=== PATIENT | male | born 1955 | race Caucasian/White ===

== ENCOUNTER 2025-01-06 10:38 | Outpatient (CLI) | payer MEDICARE, OTHER, SELFPAY ==
--- NOTE | ~2025-01-06 | US_ITS ---
TESTICULAR ULTRASOUND (Doppler ultrasound interrogation techniques used as needed for this exam.) Ordering provider: Loc Brush MD History: . N50.811 - Right testicular pain . Comparison: None. FINDINGS: TESTICLES: Normal in size. The right measures 4.9x 2x 3.2 cm and the left measures 4.8x 2.3x 2.7 cm. Normal echogenicity bilaterally without mass lesion. Normal Doppler flow bilaterally. Cystic area se en in the right testicle measuring 0.2 x 0.2 x 0.2 cm. EPIDIDYMIDES: Normal in size. The right measures 0.8 cm and the left 1 cm. Normal echogenicity bilate rally. Both demonstrate normal Doppler flow. Multiple cystic areas in the right epididymis with the l argest measures 1.3 x 1 x 1.1 cm HYDROCELE: Bilateral small VARICOCELE: Right measures 2.4 mm. OTHER ABNORMALITY: None seen. IMPRESSION: Right testicular cyst. Multiple right epididymal cyst. Bilateral hydrocele. Right varicocele. Otherwi se, normal testicular ultrasound. Reviewed, dictated and finalized at location A. IMPRESSION: Right testicular cyst. Multiple right epididymal cyst. Bilateral hydrocele. Rig ht varicocele. Otherwise, normal testicular ultrasound.
== END 2025-01-06 10:39 | disposition home or self-care (01) ==
PROVIDERS: PCP Internal Medicine; Visit Provider Internal Medicine
DX: N44.2 Benign cyst of testis (principal); N50.3 Cyst of epididymis; N43.3 Hydrocele, unspecified; I86.1 Scrotal varices
CPT/HCPCS: 76870; 93976

== ENCOUNTER 2025-01-08 11:52 | Outpatient (CLI) | payer MEDICARE, OTHER, SELFPAY ==
--- NOTE | ~2025-01-08 | XR_ITS ---
Lumbosacral Spine: AP and lateral views Clinical History: Pain Findings: The normal lordotic curve is maintained. The vertebral bodies and posterior elements are i ntact. The intervertebral disc spaces are preserved. There is moderate facet arthropathy and lumbar spine. The sacroiliac joints are normally outlined. Impression: Moderate facet arthropathy. Reviewed, dictated and finalized at location . Impression: Moderate facet arthropathy.
--- NOTE | ~2025-01-08 | XR_ITS ---
AP and oblique views of the SI joints CLINICAL HISTORY: Back pain FINDINGS: SI joints are unremarkable. Visualized hip joints are unremarkable. No degenerative, erosiv e, or sclerotic change. No fracture or dislocation. Soft tissues are unremarkable. IMPRESSION: Unremarkable exam. Reviewed, dictated and finalized at location . IMPRESSION: Unremarkable exam.
--- OUTSIDE RECORDS SUMMARY | 2025-01-08 11:59 | XMS_ITS | Continuity of Care Document ---
Author Name [facility] Organization [facility] Care Team Providers Care Supervisor Matrix Name Role Phone [facility] Unavailable Unavailable Medications Combined list of outpatient medications from Department of Defense and Veterans Affairs facilities.Medications provided include 1) outpatient medications from the last 15 months, and 2) patient-reported medications. Medication Details Route Status Patient Instructions Prescription Expires Prescription Number Last Dispense Date Ordering Provider Order Date Order Qty Source ACETAMINOPH EN-CODEINE (ACETAMINOP HEN WITH CODEINE), 300MG-30MG, TABLET, ORAL, [facility], 1000 ea. BOTTLE Active [id number] 2023 100 Pharmac y Data Transac tion Service Facilit y METFORMIN HCL ER (metformin HCl), 500 MG, TAB ER 24H, ORAL, AVKARE, 1000 ea. BOTTLE Active [id number] 4 2023 90 Pharmac y Data Transac tion Service Facilit y Immunizations Combined list of available immunizations from the Department of Defense and Veterans Affairs facilities. Immunization Series Date Given Administered By Site Reaction Lot Number CVX Code Drug Book Author Status Comments Source influenza, recombinant, quadrivalent, injectable, preservative free 2018 ALUL, () Not Given influenza , recombina nt, quadrival ent,injec table, preservat damien free DoD zoster recombinant 2018 ALBINO MICHEL () Not Given zoster recombina nt [facility] Social History Combined list of available smoking, tobacco, and other social history from Department of Defense and Veterans Affairs facilities. Social History Type Response Date Comment Sourc e This section is an empty social history section. [facility]
--- OUTSIDE RECORDS SUMMARY | 2025-01-08 11:59 | XMS_ITS | Continuity of Care Document ---
Author Organization [facility] Address [address] [place] [id number] Care Team Providers Care Manager Of Creative Services Name Role Phone PravinminnaDeedee DO Primary Care Provider Encounters Date Type Department Care Team Description 03/24/2020 Travel 03/24/2020 8:45 AM CDT Office Visit [facility] Physical [address] [address] Nate Thorne MD Koehler, Andrea H, PT Joint Pain/Shoulder region 03/18/2020 Travel 03/18/2020 8:00 AM CDT Office Visit [facility] Physical [address] [address] Nate Thorne MD Koehler, Andrea H, PT Joint Pain/Shoulder region 03/10/2020 Travel 03/10/2020 8:45 AM CDT Office Visit [facility] Physical [address] [address] Nate Thorne MD Koehler, Andrea H, PT Shoulder Pain 03/03/2020 Travel 03/03/2020 8:45 AM CDT Office Visit [facility] Physical [address] [address] Nate Thorne MD Koehler, Andrea H, PT Joint Pain/Shoulder region 02/26/2020 Travel 02/26/2020 3:45 PM CDT Office Visit [address] [address] Nate Thorne MD Koehler, Andrea H, PT Shoulder Pain 02/12/2020 Travel 02/12/2020 3:45 PM CDT Office Visit [address] [address] Nate Thorne MD Kuelker, Allyson R, PT Shoulder Pain 02/10/2020 Travel 02/10/2020 4:00 PM CDT Office Visit [address] [address] Nate Thorne MD Kuelker, Allyson R, PT Shoulder Pain 02/07/2020 Travel 02/07/2020 8:00 AM CDT Office Visit [address] [address] Nate Thorne MD Mueller, Abbie T, GREENKEEPER Shoulder Pain 02/03/[address] [address] Nu Lyon, GREENKEEPER Called To Cancel Office Appt. 01/31/2020 Travel 01/31/2020 1:30 PM CDT Office Visit [address] [address] Nate Thorne MD Mueller, Abbie T, GREENKEEPER Shoulder Pain 01/29/2020 Travel 01/29/2020 3:15 PM CDT Office Visit [address] [address] Nate Thorne MD Koehler, Andrea H, PT Joint Pain/Shoulder region 01/17/2020 Travel 01/17/2020 8:00 AM CDT Office Visit [address] [place] [address] Nate Thorne MD Koehler, Andrea H, PT Shoulder Pain 01/14/2020 Travel 01/14/2020 3:45 PM CDT Office Visit [facility] Physical [address] [address] Nate Thorne MD Koehler, Andrea H, PT Shoulder Pain 01/08/2020 8:45 AM CDT Office Visit [facility] Physical Therapy [address] [place] [address] Nate Thorne MD Koehler, Andrea H, PT Shoulder Pain 01/07/2020 Travel 01/07/2020 9:30 AM CDT Office Visit [facility] Physical Therapy [address] [place] [address] Nate Thorne MD Mueller, Abbie T, GREENKEEPER Adh Cap 12/31/2019 Travel 12/31/2019 11:00 AM CDT Office Visit [facility] Physical [address] [address] Nate Thorne MD Mueller, Abbie T, GREENKEEPER Adh Cap 12/24/2019 Travel 12/24/2019 3:45 PM CDT Office Visit [facility] Physical [address] [address] Nate Thorne MD Koehler, Andrea H, PT Joint Pain/Shoulder region 09/12/2016 Abstract [facility] Physical Therapy [address] [place] [address] Gena Bernard MD 09/09/2014 Abstract [facility] Medical 09/08/2014 Abstract [facility] [place] [address] Neri Pérez MD 08/29/2014 Abstract [facility] Gena Bernard MD 06/17/2013 Abstract [facility] Medical [facility] Deedee Renteria, DO 01/14/2013 Abstract [facility] 01/11/2013 Abstract [facility] 01/09/2013 Abstract [facility] [address], [address] [place] [address] Deedee Renteria, DO 01/09/2013 Abstract [facility] [place] [address] Deedee Renteria, DO 07/20/2012 Abstract [facility] [address], [address] [place] [address] Deedee Renteria, DO 07/20/2012 Abstract [facility] [place] [address] Deedee Renteria, DO 04/10/2012 Abstract [facility] Medical [facility] 02/20/2012 Abstract [facility] [place] [address] Gena Bernard MD 01/10/2012 Abstract [facility] [place] [address] Deedee Renteria, DO 01/10/2012 Abstract [facility] [address] [place] [address] Deedee Renteria, DO 01/09/2012 Abstract [facility] [place] [address] eDedee Renteria, DO 10/17/2011 Emergency [facility] [place] [address] Gena Bernard MD 07/01/[address] [facility] [place] [address] Deedee Renteria DO 02/22/[address] [facility] [place] [address] Deedee Renteria DO Social History Smoking Status as of 01/08/2025 Tobacco Use Types Packs/Day Years Used Date Smoking Tobacco: Never Assessed Sex and Gender Information Value Date Recorded Sex Assigned at Not on file Legal Sex Male 6:09 PM CDT Gender Identity Not on file Sexual Orientation Not on file Last Filed Vital Signs Vital Sign Reading Time Taken Comments Blood Pressure 100/80 01/09/2013 8:14 AM CDT Pulse 64 01/09/2013 8:14 AM CDT Temperature - - Respiratory Rate - - Oxygen Saturation - - Inhaled Oxygen Concentration - - Weight 85.7 kg (189 lb) 01/09/2013 8:14 AM CDT Height 180.3 cm (5' 11) 01/09/2013 8:14 AM CDT Body Mass Index 26.36 01/09/2013 8:14 AM CDT Plan of Treatment Not on file Procedures Procedure Name Priority Date/Time Associated Diagnosis Comments THYROXINE, FREE (FT4) Routine 01/09/2013 8:32 AM CDT THYROID STIM HORMONE TSH Routine 01/09/2013 8:32 AM CDT LIPID PANEL Routine 01/09/2013 8:32 AM CDT COMPREHENSIVE METABOLIC PANEL Routine 01/09/2013 8:32 AM CDT VITAMIN D, 25 OH Routine 01/09/2013 8:32 AM CDT Results * (ABNORMAL) COMPREHENSIVE METABOLIC PANEL (01/09/2013 8:32 AM CDT) SODIUM S/P/B 139 136 - 145 mmol/L [facility] CONVERSION POTASSIUM S/P/B 4.1 3.5 - 5.1 mmol/L [facility] TO [facility] CONVERSION CHLORIDE S/P/B 102 98 - 107 mmol/L [facility] CONVERSION CO2 30(H) 22 - 29 mmol/L [facility] CONVERSION ANION GAP 11 8 - 20 [facility] T O EPIC CONVERSION BUN 15 8 - 23 mg/dL [facility] CONVERSION CREATININE S/P/B 1.13 0.70 - 1.20 mg/dL [facility] CON[facility] GFR ESTIMATE >60 >60 mL/min/1 .73m'2 [facility] CONVERSION EGFR AFR. AMER. >60 NOTE: eGFR is not calculated for patients <18 years of age. This is an estimated GFR (CKD EPI) and should not be used for calculating drug doses. >60 mL/min/1 .73m'2 [facility] CONVERSION GLUCOSE 90 70 - 99 mg/dL [facility] CON[facility] CALCIUM S/P/B 9.3 8.6 - 10.2 mg/dL [facility] CONVERSION BILIRUBIN TOTAL S/P/B 0.6 0.2 - 1.2 mg/dL [facility] CONVERSION AST 20 0 - 40 IU/L [facility] CONVERSION ALT 21 0 - 41 IU/L [facility] CONVERSION ALKALINE PHOSPHATASE S/P/B 52 40 - 129 IU/L [facility] CONVERSION TOTAL PROTEIN S/P/B 6.4 6.4 - 8.3 g/dL [facility] CONVERSION ALBUMIN S/P/B 4.4 3.5 - 5.2 g/dL [facility] CONVERSION GLOBULIN 2.0(L) 2.3 - 3.6 g/dL [facility] CONVERSION A/G RATIO 2.2(H) 1.0 - 2.0 [facility] CONVERSION 01/09/2013 8:32 AM CDT 01/09/2013 8:32 AM CDT Narrative [facility] CONVERSION - 01/09/2013 2:30 PM CDT Result Communication: No patient communication needed at this time Deedee Renteria DO LABORATORY Final Result [facility] CON[facility] * (ABNORMAL) LIPID PANEL (01/09/2013 8:32 AM CDT) CHOLESTEROL 175 <200 mg/dL [facility] CONVERSION TRIGLYCERIDES 89 <150 mg/dL [facility] CON[facility] HDL 50(L) >59 mg/dL [facility] CON[facility] LDL (CALCULATED) 107(H) <100 mg/dL [facility] CON[facility] NON HDL CHOLESTEROL 125 <130 mg/dL [facility] Comment: Result Comment: NOTE: WHEN THE TRIGLYCERIDES ARE >200 mg/dL, NON HDL C IS A SECONDARY TARGET OF THERAPY, WITH A GOAL 30 mg/dL HIGHER THAN THE IDENTIFIED LDL C GOAL. CHOL/HDL RATIO 3.5 0.0 - 4.5 [facility] CONVERSION VLDL CHOLESTEROL (LMP) 18 5 - 55 mg/dL [facility] CONVERSION LIPID INTERPRETATION [facility] CONCENSUS REPORT RECOMMENDATI ONS: ADULT CHILD LOW RISK: CHOLESTEROL <200 <170 TRIGLYCERIDE <150 --- HDL >=60 --- LDL <100 <110 BORDERLINE: CHOLESTEROL 200-239 170-199 TRIGLYCERIDE 150-199 --- HDL 40-59 --- LDL 100-159 110-129 HIGH RISK: CHOLESTEROL >=240 >=200 TRIGLYCERIDE >=200 --- HDL <40 --- LDL >=160 >=130 [facility] CONVERSION 01/09/2013 8:32 AM CDT 01/09/2013 8:32 AM CDT Narrative [facility] CONVERSION - 01/09/2013 2:30 PM CDT Result Communication: No patient communication needed at this time Deedee Renteria DO LABORATORY Final Result Performing Organization Address City/[facility]/ZIP Co de Phone Number [facility] TO [facility] CONVERSION * THYROXINE, FREE (FT4) (01/09/2013 8:32 AM CDT) FREE T4 0.97 0.93 - 1.70 ng/dL [facility] CONVERSION 01/09/2013 8:32 AM CDT 01/09/2013 8:32 AM CDT Narrative [facility] CONVERSION - 01/09/2013 2:30 PM CDT Result Communication: No patient communication needed at this time Deedee Renteria DO LABORATORY Final Result [facility] CONVERSION * (ABNORMAL) THYROID STIM HORMONE, TSH (01/09/2013 8:32 AM CDT) TSH 4.21(H) 0.27 - 4.20 mIU/mL [facility] CONVERSION 01/09/2013 8:32 AM CDT 01/09/2013 8:32 AM CDT Narrative [facility] CONVERSION - 01/09/2013 2:30 PM CDT Result Communication: No patient communication needed at this time Deedee Renteria DO LABORATORY Final Result Performing Organization Address City/[facility] Co de Phone Number [facility] TO [facility]IC CONVERSION * VITAMIN D, 25 OH (01/09/2013 8:32 AM CDT) VITAMIN D 25 HYDROXY S/P/B 52 30 - 100 NG/ML [facility] TO [facility]IC CONVERSION Comment: Result Comment: INTERPRETATION DEFICIENT <20 INSUFFICIENT 20-30 SUFFICIENT 30-100 POTENTIAL INTOXICATION >100 TESTING PERFORMED AT [facility], A MEMBER OF THE [facility]. 01/09/2013 8:32 AM CDT 01/09/2013 8:32 AM CDT Narrative [facility] CONVERSION - 01/09/2013 2:30 PM CDT Result Communication: No patient communication needed at this time Deedee Renteria DO LABORATORY Final Result Performing Organization Address City/[facility] Co de Phone Number [facility] TO [facility] CONVERSION Visit Diagnoses Diagnosis Start Date Other and unspecified hyperlipidemia 02/22/2011 Other and unspecified hyperlipidemia 07/01/2011 Dizziness and giddiness 10/17/2011 Other and unspecified hyperlipidemia 01/09/2012 Thyrotoxicosis Thyrotoxicosis without mention of goiter or other cause, without mention of thyrotoxic crisis or storm 01/10/2012 Examination Unspecified examination 02/20/2012 Other and unspecified hyperlipidemia 07/20/2012 Other and unspecified hyperlipidemia 01/09/2013 Esophageal reflux 09/08/2014 Other shoulder lesions, left shoulder 09/12/2016 Adhesive capsulitis of right shoulder Adhesive capsulitis of shoulder 12/24/2019 Shoulder stiffness, right 12/24/2019 Right shoulder pain, unspecified chronicity 12/24/2019 Adhesive capsulitis of right shoulder Adhesive capsulitis of shoulder 12/31/2019 Shoulder stiffness, right 12/31/2019 Right shoulder pain, unspecified chronicity 12/31/2019 Adhesive capsulitis of right shoulder Adhesive capsulitis of shoulder 01/07/2020 Shoulder stiffness, right 01/07/2020 Right shoulder pain, unspecified chronicity 01/07/2020 Adhesive capsulitis of right shoulder Adhesive capsulitis of shoulder 01/08/2020 Shoulder stiffness, right 01/08/2020 Right shoulder pain, unspecified chronicity 01/08/2020 Adhesive capsulitis of right shoulder Adhesive capsulitis of shoulder 01/14/2020 Shoulder stiffness, right 01/14/2020 Right shoulder pain, unspecified chronicity 01/14/2020 Adhesive capsulitis of right shoulder Adhesive capsulitis of shoulder 01/17/2020 Shoulder stiffness, right 01/17/2020 Right shoulder pain, unspecified chronicity 01/17/2020 Adhesive capsulitis of right shoulder Adhesive capsulitis of shoulder 01/29/2020 Shoulder stiffness, right 01/29/2020 Right shoulder pain, unspecified chronicity 01/29/2020 Adhesive capsulitis of right shoulder Adhesive capsulitis of shoulder 01/31/2020 Shoulder stiffness, right 01/31/2020 Right shoulder pain, unspecified chronicity 01/31/2020 Adhesive capsulitis of right shoulder Adhesive capsulitis of shoulder 02/07/2020 Shoulder stiffness, right 02/07/2020 Right shoulder pain, unspecified chronicity 02/07/2020 Adhesive capsulitis of right shoulder Adhesive capsulitis of shoulder 02/10/2020 Shoulder stiffness, right 02/10/2020 Right shoulder pain, unspecified chronicity 02/10/2020 Adhesive capsulitis of right shoulder Adhesive capsulitis of shoulder 02/12/2020 Shoulder stiffness, right 02/12/2020 Right shoulder pain, unspecified chronicity 02/12/2020 Adhesive capsulitis of right shoulder Adhesive capsulitis of shoulder 02/26/2020 Shoulder stiffness, right 02/26/2020 Right shoulder pain, unspecified chronicity 02/26/2020 Adhesive capsulitis of right shoulder Adhesive capsulitis of shoulder 03/03/2020 Shoulder stiffness, right 03/03/2020 Right shoulder pain, unspecified chronicity 03/03/2020 Adhesive capsulitis of right shoulder Adhesive capsulitis of shoulder 03/10/2020 Shoulder stiffness, right 03/10/2020 Right shoulder pain, unspecified chronicity 03/10/2020 Adhesive capsulitis of right shoulder Adhesive capsulitis of shoulder 03/18/2020 Shoulder stiffness, right 03/18/2020 Right shoulder pain, unspecified chronicity 03/18/2020 Adhesive capsulitis of right shoulder Adhesive capsulitis of shoulder 03/24/2020 Shoulder stiffness, right 03/24/2020 Right shoulder pain, unspecified chronicity 03/24/2020 Care Teams Manager Of Creative Services Relationship Specialty Start Date End Date Deedee Renteria DO [address] [place] [address] PCP - General 09/12/16
== END 2025-01-08 11:53 | disposition home or self-care (01) ==
PROVIDERS: PCP Internal Medicine; Visit Provider Internal Medicine
DX: M53.3 Sacrococcygeal disorders, not elsewhere classified (principal); M47.896 Other spondylosis, lumbar region; G89.29 Other chronic pain
CPT/HCPCS: 72100; 72202